=== PATIENT | female | born 1930 | race Caucasian/White ===

== ENCOUNTER 2017-07-04 22:55 | Inpatient (IN) ==
[2017-07-05] MEDS ORDERED: SODIUM CHLORIDE 0.9% 500 ML IV STA (02:07)
[2017-07-05] MEDS ORDERED: ASPIRIN 325 MG TABLET PO STA (02:07)
[2017-07-05] MEDS ORDERED: ASPIRIN 325 MG TABLET ONE (02:26)
[2017-07-05 02:54] LABS: Hematocrit 29.2 VOL% (35.7-47.0); Hemoglobin 9.6 GM/DL (12.0-16.0); Immature Granulocytes % 0.4 %; Immature Granulocytes Absolute 0.02 #; Lymphocytes # 1.5 10*3/uL (1.4-4.0); Mean Corpuscular HGB Conc 32.9 GM/DL (32-36); Mean Corpuscular Hemoglobin 29 PG (27-34); Mean Corpuscular Volume 89.6 FL (87-102); Mean Platelet Volume 11.4 FL (9.6-12.0); Monocytes # 0.4 10*3/uL (0.11-0.8); Monocytes % 8.4 % (1.7-12.7); Neutrophils # 2.8 10*3/uL (1.4-7.4); Neutrophils % 59.2 % (38.7-73.9); Platelet Count 100 T/CUMM (130-400); Red Blood Count 3.26 MC/CUMM (3.8-5.5); Red Cell Distribution Width 13.3 % (9.3-17.3); White Blood Count 4.8 T/CUMM (4-12)
[2017-07-05 03:10] LABS: PT Patient Result 10.4 SECS; Partial Thromboplastin Time 24.3 SECS (0-40)
[2017-07-05 03:15] LABS: Alanine Aminotransferase 25 U/L (13-56); Albumin 3.9 G/DL (3.4-5.0); Alkaline Phosphatase 78 U/L (45-117); Aspartate Amino Transferase 27 U/L (0-37); Blood Urea Nitrogen 31 MG/DL (7-18); Calcium 8.7 MG/DL (8.5-10.1); Glucose 98 MG/DL (74-106); Osmolality,Calculated 272.4 MOS/KG (273-304); Potassium 4.9 MMOL/L (3.5-5.1); Sodium 133 MMOL/L (136-145); Total Protein 6.3 G/DL (6.4-8.3); Troponin I Only < 0.015 NG/ML (0.00-0.045)
[2017-07-05 03:39] LABS: Platelet Estimate Decreased
[2017-07-05 04:31] LABS: Barbiturates Screen,Urine Negative (Negative); Benzodiazepines Screen,Urine Positive (Negative); Cannabinoid Screen,Urine Negative (Negative); Opiate Screen,Urine Positive (Negative); Phencyclidine Screen,Urine Negative (Negative)
[2017-07-05 04:33] LABS: Apearance,Urine Slightly Hazy (Clear); Bacteria,Urine Occasional /HPF (Few); Bilirubin,Urine Negative (Negative); Blood, Urine Negative (Negative); Glucose,Urine (UA) Negative (Negative); Ketones,Urine Negative (Negative); Mucus,Urine Occasional /LPF (Occasional); Nitrite,Urine Negative (Negative); Protein,Urine Negative; RBC,Urine <1 /HPF (0-4); Squamous Epithelial Cell,Urine Occasional /HPF (0-10); Urine Color Yellow (Yellow); Urine Specific Gravity 1.006 (1.001-1.035); Urine Urobilinogen < 2.0 EU/DL (0.2-1.0); WBC,Urine <1 /HPF (0-6)
[2017-07-05] MEDS ORDERED: ACETAMINOPHEN 325 MG TABLET PO PRN (06:23)
[2017-07-05] MEDS ORDERED: ONDANSETRON 4 MG/2 ML VIAL IV PRN (06:23)
[2017-07-05] MEDS: SODIUM CHLORIDE 0.9% 1,000 ML IV SCH (07:17)
[2017-07-05] MEDS ORDERED: PANTOPRAZOLE 40 MG VIAL IV ONE (09:16)
[2017-07-05] MEDS ORDERED: DOCUSATE SODIUM 100 MG CAPSULE ONE (09:16)
[2017-07-05] MEDS: PANTOPRAZOLE 40 MG VIAL IV SCH (09:17)
[2017-07-05] MEDS: DOCUSATE SODIUM 100 MG CAPSULE PO SCH ×2 (09:17→21:56)
[2017-07-05] MEDS ORDERED: NITROGLYCERIN SL 0.4 MG TABLET SL PRN (12:02)
[2017-07-05] MEDS ORDERED: CLORAZEPATE 3.75 MG TABLET PO PRN (12:02)
[2017-07-05] MEDS ORDERED: guaiFENesin 200 MG/10 ML UDCUP PO PRN (14:02)
[2017-07-05] MEDS: MAGNESIUM CHLORIDE 64 MG TABLET PO SCH ×2 (15:43→21:55)
[2017-07-05 16:56] LABS: Folate 15.3 NG/ML (5.4-24.0)
[2017-07-05] MEDS: METOPROLOL SUCCINATE XL 25 MG TABLET PO SCH (21:55)
[2017-07-06] MEDS: SODIUM CHLORIDE 0.9% 1,000 ML IV SCH ×2 (01:45→17:08)
[2017-07-06 01:48] LABS: Hematocrit 25.9 VOL% (35.7-47.0); Hemoglobin 8.6 GM/DL (12.0-16.0); Immature Granulocytes % 0.3 %; Immature Granulocytes Absolute 0.01 #; Lymphocytes # 0.8 10*3/uL (1.4-4.0); Lymphocytes % 24.9 % (21.3-54.2); Mean Corpuscular HGB Conc 33.2 GM/DL (32-36); Mean Corpuscular Hemoglobin 29 PG (27-34); Mean Corpuscular Volume 88.1 FL (87-102); Mean Platelet Volume 10.4 FL (9.6-12.0); Monocytes # 0.2 10*3/uL (0.11-0.8); Neutrophils # 2.2 10*3/uL (1.4-7.4); Neutrophils % 67.8 % (38.7-73.9); Platelet Count 91 T/CUMM (130-400); Red Blood Count 2.94 MC/CUMM (3.8-5.5); White Blood Count 3.3 T/CUMM (4-12)
[2017-07-06 02:08] LABS: Alanine Aminotransferase 19 U/L (13-56); Albumin 3.2 G/DL (3.4-5.0); Alkaline Phosphatase 66 U/L (45-117); Aspartate Amino Transferase 24 U/L (0-37); Bilirubin,Total < 0.39 MG/DL (0.2-1.0); Blood Urea Nitrogen 30 MG/DL (7-18); Calcium 7.9 MG/DL (8.5-10.1); Cholesterol 133 MG/DL (50-200); Glucose 78 MG/DL (74-106); HDL Cholesterol 68 MG/DL (40-60); Osmolality,Calculated 279.7 MOS/KG (273-304); Potassium 4.8 MMOL/L (3.5-5.1); Risk Ratio 1.96; Sodium 138 MMOL/L (136-145); Total Protein 5.4 G/DL (6.4-8.3); Triglycerides 71 MG/DL (2-150); VLDL CHOLESTEROL 14.2 MG/DL
[2017-07-06 03:08] LABS: Band Neutrophils 5 % (0-10); Lymphocytes 19 % (20-55); Myelocytes 2 %; Segmented Neutrophils 71 % (50-85); Total Cells Counted 100
[2017-07-06 03:09] LABS: Anisocytosis 1+; Hypochromasia 1+; Ovalocytes Few; Platelet Estimate Decreased
[2017-07-06] MEDS ORDERED: ALBUTEROL/IPRATROPIUM 3 ML NEB RESP TX PRN (08:48)
[2017-07-06] MEDS: DOCUSATE SODIUM 100 MG CAPSULE PO SCH ×2 (09:02→22:34)
[2017-07-06] MEDS: METOPROLOL SUCCINATE XL 25 MG TABLET PO SCH ×2 (09:06→21:51)
[2017-07-06] MEDS: MAGNESIUM CHLORIDE 64 MG TABLET PO SCH ×3 (09:06→21:51)
[2017-07-06] MEDS: POTASSIUM CHLORIDE 20 MEQ TABLET PO SCH (09:06)
[2017-07-06] MEDS: PANTOPRAZOLE 40 MG VIAL IV SCH (09:07)
[2017-07-06] MEDS: LISINOPRIL 10 MG TABLET PO SCH (09:07)
[2017-07-06] MEDS: ASPIRIN EC 81 MG TABLET PO SCH (09:07)
[2017-07-06] MEDS: AZITHROMYCIN INJ 250 MG in SODIUM CHLORIDE 0.9% 250 ML IV SCH (12:00)
[2017-07-06] MEDS ORDERED: DONEPEZIL 5 MG TABLET PO SCH (21:00)
[2017-07-07 04:51] LABS: Basophils % 0.4 % (0.0-0.8); Eosinophils % 0.8 % (0.00-10.9); Hematocrit 26.4 VOL% (35.7-47.0); Hemoglobin 8.9 GM/DL (12.0-16.0); Immature Granulocytes % 0.4 %; Immature Granulocytes Absolute 0.01 #; Lymphocytes # 1.1 10*3/uL (1.4-4.0); Mean Corpuscular HGB Conc 33.7 GM/DL (32-36); Mean Corpuscular Hemoglobin 30 PG (27-34); Mean Corpuscular Volume 88.9 FL (87-102); Mean Platelet Volume 11.2 FL (9.6-12.0); Monocytes # 0.3 10*3/uL (0.11-0.8); Monocytes % 12.4 % (1.7-12.7); Neutrophils # 1.1 10*3/uL (1.4-7.4); Platelet Count 91 T/CUMM (130-400); Red Blood Count 2.97 MC/CUMM (3.8-5.5); Red Cell Distribution Width 13.1 % (9.3-17.3); White Blood Count 2.5 T/CUMM (4-12)
[2017-07-07 05:31] LABS: Calcium 7.8 MG/DL (8.5-10.1); Osmolality,Calculated 281.5 MOS/KG (273-304); Potassium 4.5 MMOL/L (3.5-5.1)
[2017-07-07 05:35] LABS: Giant Platelets Few; Hypochromasia 1+; Microcytosis Slight; Ovalocytes Slight; Platelet Estimate Decreased
[2017-07-07] MEDS ORDERED: ROSUVASTATIN 10 MG TABLET PO SCH (09:00)
[2017-07-07] MEDS: PANTOPRAZOLE 40 MG VIAL IV SCH (09:08)
[2017-07-07] MEDS: METOPROLOL SUCCINATE XL 25 MG TABLET PO SCH (09:09)
[2017-07-07] MEDS: LISINOPRIL 10 MG TABLET PO SCH (09:09)
[2017-07-07] MEDS: POTASSIUM CHLORIDE 20 MEQ TABLET PO SCH (09:09)
[2017-07-07] MEDS: MAGNESIUM CHLORIDE 64 MG TABLET PO SCH (09:09)
[2017-07-07] MEDS: ASPIRIN EC 81 MG TABLET PO SCH (09:10)
[2017-07-07] MEDS: DOCUSATE SODIUM 100 MG CAPSULE PO SCH (09:10)
[2017-07-07] MEDS: AZITHROMYCIN INJ 250 MG in SODIUM CHLORIDE 0.9% 250 ML IV SCH (10:44)
[2017-07-07 11:51] VITALS: BP 114/56
== END 2017-07-07 14:43 | disposition home health service (06) | DRG 683 ==
LOC: N.ED 22:55 → N.EDINP 07-05 04:02 → N.TELEN 07-05 09:30
PROVIDERS: ADMIT Family Medicine; ATTEND Family Medicine